=== PATIENT | female | born 1930 | race Caucasian/White ===

== ENCOUNTER 2016-12-29 12:16 | Emergency (ER) | payer OTHER, MEDICAID ==
[~2016-12-29] VITALS: Ht 157.5 cm; Wt 49.9 kg
[2016-12-29] MEDS ORDERED: SODIUM CHLORIDE 0.9% 500 ML IV ONE (12:28)
[2016-12-29 12:52] LABS: Hematocrit 30.7 % (36.0-46.0); Hemoglobin 10.8 g/dL (12.2-16.2); Mean Corpuscular Hemoglobin 33.9 pg (28.0-32.0); Mean Corpuscular Volume 96.9 fL (80.0-100.0); Mean Platelet Volume 8.1 fL (6.9-10.8); Platelet Count (auto) 123 10^3/uL (140-450); Red Cell Distribution Width 13.4 % (11.8-14.3); White Blood Cell 5.2 10^3/uL (4.4-10.8)
[2016-12-29 12:56] LABS: Metamyelocytes % 0; Myelocytes % 0; Promyelocytes % 0; Reactive Lymphocytes 0
[2016-12-29 13:06] LABS: Albumin 2.6 g/dL (3.4-5.0); Calcium 7.5 mg/dL (8.5-10.1); Magnesium 1.6 mg/dL (1.6-2.6); Potassium 3.4 mmol/L (3.5-5.1)
[2016-12-29 13:10] LABS: Bilirubin, Total 0.6 mg/dL (0.2-1.0); Total Protein 5.4 g/dL (6.4-8.2)
[2016-12-29 13:16] LABS: INR 1.2 (0.9-1.15); Prothrombin Time 13.1 sec (9.37-12.3)
[2016-12-29 13:42] LABS: Platelet Estimate Decreased
[2016-12-29 13:43] LABS: RBC Morphology Normal
[2016-12-29] MEDS ORDERED: IOHEXOL 300 MG/ML 100ML BOTTLE IJ ONE (15:40)
[2016-12-29 22:22] VITALS: BP 141/82
== END 2016-12-29 22:26 | disposition short-term general hospital (02) ==
LOC: ER 12:16
DX: R22.2 Localized swelling, mass and lump, trunk (principal); D50.0 Iron deficiency anemia secondary to blood loss (chronic); Z85.3 Personal history of malignant neoplasm of breast; R41.82 Altered mental status, unspecified
CPT/HCPCS: 36415; 51702; 71010; 71260; 80053; 83735; 85007; 85027; 85610; 85730; 86850; 86900; 86901; 93005; 94761; 99291; Q9967